=== PATIENT | female | born 2000 | race Caucasian/White ===

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

== ENCOUNTER 2020-07-28 19:19 | Emergency (ER) | payer OTHER, SELFPAY ==
[2020-07-28 19:20] VITALS: BP 151/89; PULSE 76; RESP 16; TEMP 36.7; O2SAT 100; BMI 48.2
--- NOTE | 2020-07-28 19:39 | ED.DCSUM_ITS ---
History of Present Illness Chief Complaint: GI Bleed Informant: Patient Narrative: 20-year-old female presents for evaluation of painless rectal bleeding. She tells me about 1 week ago she was constipated and spent a significant hard time sitting and straining. During this time she started to have bright red blood per the rectum and again no pain. She states that she went several days where she had normal bowel movements and no bleeding but the past couple days she has had diarrhea with blood. She denies any abdominal pain but she does note some intermittent cramping prior to having a bowel movement. No fevers. She states that she has had a couple endoscopies and colonoscopies when she was younger was told that she had IBS. 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 She never had any hemorrhoidal disease. No new medication changes. Patient does have a psychiatric history. Triage nurses noted that she has a vague daily thoughts of harming herself which is not a new finding. She states that she is not actively suicidal. Past Medical History - Allergies and Home Meds Allergies/Adverse Reactions: Allergies amoxicillin Allergy (Verified 07/28/20 19:23) Rash cefdinir [From Omnicef] Allergy (Verified 07/28/20 19:23) Rash Primary Care Physician: Thi Rowell DO [Primary Care Provider] - Past Medical History: - - Depression Surgical History: - - Colonoscopy/EGD Smoking Status: Former smoker Alcohol: None Drugs: None Review of Systems General: Denies: Chills, Fever, Sweats Eyes: Denies: Visual changes - bilaterally, Diplopia ENT: Denies: Rhinorrhea, Sore throat Cardiovascular: Denies: Chest pain, Palpitations Respiratory: Denies: Dyspnea, Cough, Dyspnea on exertion Gastrointestinal: Reports: Diarrhea, Constipation, - - Painless rectal bleeding. Denies: Abdominal pain, Nausea, Vomiting, Melena, Hematochezia Genitourinary: Denies: Dysuria, Hematuria, Frequency Musculoskeletal: Denies: Back pain, Extremity Pain Skin: Denies: Rash, Wounds Neurological: Denies: Headache, Weakness, Numbness Physical Exam Vital Signs/Narrative: Vital Signs Temp Pulse Resp BP Pulse Ox 07/28/20 19:20 98.1 F 76 16 151/89 H 100 Inital Vital Signs reviewed: Yes General: Well nourished, Well developed, Obese, No Acute Distress Head: Normocephalic, Atraumatic Eyes: Perrl, EOMI ENT: Moist mucous membranes, No rhinorrhea Neck: Supple, Nontender Cardiovascular: Regular rate, Regular rhythm, No murmurs Respiratory: No distress, CTA bilaterally, Chest nontender Abdomen: Soft, Nontender, Nondistended, Normal bowel sounds, - - Abdominal exam is benign. Rectal: - - No blood on the glove. There appears to be some palpable internal hemorrhoids. No external hemorrhoid noted or fissure. Back: Nontender, Normal Inspection Extremities: Nontender, No edema Skin: Normal color, No rash Neurological: Alert, Oriented x3, Cranial nerves II-XII grossly intact, Normal Strength, Normal Sensation Psychological: Normal affect, Normal Mood Diagnostic/Tx/Re-eval - Medical Decision Making Patient has normal vital signs. She appears well-hydrated. This appears to be internal hemorrhoid bleed. Will write for some Proctofoam HC. Should symptoms not resolve she may require surgical referral for definitive care. She does not have a current primary care doctor and I will refer her to the next no doc. She has seen [facility] in the past and would like to stay within the [facility] system. ED Disposition - Plan for ED Patient: Disposition: Home or Assisted Living Diagnosis: Internal hemorrhoid, bleeding Instructions: ED Hemorrhoids Prescriptions: Hydrocortisone/Pramoxine [Proctofoam-Hc Foam] 10 gm RC TID #1 canister Prescription Printed Referrals: Conner Willis MD [STAFF PHYSICIAN] - (call to arrange follow up) Additional Instructions: Avoid constipation or long periods of sitting and straining. You may consider stool softener or a bottle of mag citrate if you become constipated again.
[2020-07-28 20:01] VITALS: BP 151/89; PULSE 76; RESP 16
== END 2020-07-28 20:02 | disposition home or self-care (01) ==
LOC: ED 19:54
PROVIDERS: Emergency Provider Emergency Medicine
DX: K64.8 Other hemorrhoids (principal); R19.7 Diarrhea, unspecified; K59.00 Constipation, unspecified; E66.9 Obesity, unspecified; F32.9 Major depressive disorder, single episode, unspecified; Z79.899 Other long term (current) drug therapy; Z87.891 Personal history of nicotine dependence
CPT/HCPCS: 99282

== ENCOUNTER 2020-08-05 16:44 | Emergency (ER) | payer OTHER, SELFPAY ==
[2020-08-05 16:45] VITALS: BP 149/114; PULSE 88; RESP 16; TEMP 35.9; O2SAT 99; BMI 47.0
--- NOTE | 2020-08-05 16:59 | CT_ITS ---
STUDY: CT ABDOMEN AND PELVIS WITH CONTRAST REASON FOR EXAM: Female, 20 years old. Abd pain RADIATION DOSAGE (If Supplied By Facility): CTDIvol = ( 17.08 ) mGy, DLP = ( 1352.08 ) mGycm TECHNIQUE: Transaxial images were obtained from the dome of the diaphragm to the symphysis pubis without oral contrast. IV 100mL Isovue-370 was administered. Sagittal and coronal images were reconstructed. Individualized dose optimization techniques were used for this CT. COMPARISON: None. FINDINGS: The visualized lung bases are unremarkable. The visualized portions of the heart are within normal limits. Normal liver. Normal gallbladder and extrahepatic biliary system. Normal spleen. Normal pancreas. Normal bilateral adrenal glands. Normal right kidney. Normal left kidney. Normal visualized stomach. Normal small intestine. Normal colon. The appendix is visualized and appears normal. Normal abdominal aorta. Normal inferior vena cava. Normal retroperitoneum. Normal urinary bladder. Normal abdominal wall. Normal osseous structures. CT/Abdomen/Pelvis W IV Cont ONLY IMPRESSION: Normal enhanced CT of the abdomen and pelvis. Electronically Signed: Twin Florez DO at 18:56 EDT Tel [phone], Service support ,
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
[2020-08-05] MEDS: 0.9% Normal Saline 1,000 ML 125 ML IV (17:22)
[2020-08-05] MEDS: Ondansetron 4 MG/2 ML Vial IV (17:23)
[2020-08-05 17:41] LABS: Absolute Lymphocyte Count 1.62 X10^3/uL (0.83-4.51); Absolute Neutrophil Count 4.1 X10^3/uL (2.0-7.7); Basophil# 0.04 X10^3/uL; Basophil% 0.6 % (0-1); Eosinophil# 0.42 X10^3/uL; Eosinophils% 6.2 % (0-5); Hematocrit 40.3 % (37-47); Hemoglobin 13.4 g/dL (12.0-15.0); Lymphocyte # 1.62 X10^3/ul (4.0); Lymphocyte % 23.9 % (19-41); Mean Corp Hgb Conc 33.3 g/dL (32-36); Mean Corpuscular Hgb 30.6 pg (27.0-32.0); Mean Platelet Vol. 8.9 fl (6.2-12.0); Monocyte# 0.54 X10^3/uL; NRBC Flagged by Analyzer 0 % (0-5); Neutrophil # 4.14 X10^3/uL (2.7-7.7); Neutrophil % 61.2 % (47-70); Platelet Count 299 K/mm3 (150-450); RBC Distribution Width CV 11.6 % (11.6-14.6); RBC Distribution Width SD 39.4 fl (35.1-43.9); Red Blood Count 4.38 M/mm3 (4.2-5.4); White Blood Count 6.8 K/mm3 (4.4-11.0)
[2020-08-05 17:54] LABS: AST(SGOT) 21 U/L (15-37); Alanine Aminotransfer ALT/SGPT 23 U/L (13-56); Alkaline Phosphatase 61 U/L (45-117); Anion Gap 4 (5-15); BUN 10 mg/dL (7-18); Calcium,Total 9.1 mg/dL (8.5-10.1); Chloride 104 mmol/L (98-107); Creatinine, Serum 0.91 mg/dL (0.55-1.02); EST Glomerular Filtration Rate 83 mL/min (>60); Est Glom Filt Rate - Afr Amer 100 mL/min (>60); Globulin 3.9 g/dL (2.2-4.2); Glucose 82 mg/dL (74-106); Potassium 3.8 mmol/L (3.5-5.1); Protein, Total 7.9 g/dL (6.4-8.2); Sodium Level 138 mmol/L (136-145)
[2020-08-05 18:13] LABS: Internal QC Validated? YES +Cl - CLEAR BKGD; Pregnancy, Serum, hCG Quali. NEGATIVE Negative
[2020-08-05 19:25] VITALS: BP 136/70; PULSE 68; RESP 16
== END 2020-08-05 19:26 | disposition home or self-care (01) ==
LOC: ED 17:31
PROVIDERS: Emergency Provider Emergency Medicine
DX: R10.9 Unspecified abdominal pain (principal); R11.2 Nausea with vomiting, unspecified; K58.9 Irritable bowel syndrome, unspecified; Z87.891 Personal history of nicotine dependence
CPT/HCPCS: 74177; 80053; 84703; 85025; 96361; 96374; 99283; J7030; Q9967; J2405

== ENCOUNTER 2021-01-14 07:29 | Emergency (ER) | payer OTHER, SELFPAY ==
[2021-01-14 07:31] VITALS: BP 159/74; PULSE 87; RESP 16; TEMP 35.9; O2SAT 100; BMI 48.0
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
== END 2021-01-14 09:40 | disposition home or self-care (01) ==
PROVIDERS: Emergency Provider Emergency Medicine
DX: S46.912A Strain of unspecified muscle, fascia and tendon at shoulder and upper arm level, left arm, initial encounter (principal); V89.2XXA Person injured in unspecified motor-vehicle accident, traffic, initial encounter; Y93.9 Activity, unspecified; Y92.9 Unspecified place or not applicable; Z87.891 Personal history of nicotine dependence
CPT/HCPCS: 73030; 99282

== ENCOUNTER 2021-02-22 17:05 | Emergency (ER) | payer OTHER, SELFPAY ==
[2021-02-22 17:05] VITALS: BP 134/75; PULSE 90; RESP 16; TEMP 35.8; O2SAT 100; BMI 49.6
--- NOTE | 2021-02-22 17:41 | EX.ED.DYSGE1 ---
HPI History of Present Illness Chief Complaint: Nausea/Vomiting Informant: patient Narrative Narrative: Patient here with mother recurrent vomiting starting yesterday. Symptoms started 2 weeks ago with diarrhea at that time. States daily loose stools that would alternate being soft and loose. Nonbloody. No recent antibiotics. She was Covid tested a few days after and was negative. She had an infection in May she is vaccinated in October. Denies sick contacts. Tolerating fluids up till yesterday. Nonbloody emesis. Endoscopy at the age of 15 noting gastritis. She is not on any stomach medications currently. Denies urinary symptoms last menstrual period 3 weeks ago. Prior similar symptoms: Yes PFSH PFSH Medical History Anxiety Depression Non-smoker Home Medications fluoxetine 80 mg PO QHS 07/28/20 [History Last Taken Unknown] lurasidone 60 mg PO QHS 07/28/20 [History Last Taken Unknown] trazodone 75 mg PO QHS 07/28/20 [History Last Taken Unknown] aripiprazole 5 mg PO DAILY 02/22/21 [History Last Taken Unknown] omeprazole 40 mg PO DAILY #30 cap 02/22/21 [Rx Last Taken Unknown] ondansetron 4 mg PO Q6H PRN #10 tab 02/22/21 [Rx Last Taken Unknown] Allergy/AdvReac Type Severity Reaction Status Date / Time amoxicillin Allergy Rash Verified 02/22/21 17:09 [email or web address] [From Omnicef] Allergy Rash Verified 02/22/21 17:09 Surgical History (Updated 02/22/21 @ 18:11 by El Rojas) Hx of colonoscopy Social History Smoking Status: Former smoker ROS ROS ED Constitutional Constitutional ED: Denies chills, fever(s) or sweats Eyes Eyes: Denies change in vision ENT ENT ED: Denies dysphagia or sore throat Cardiovascular Cardiovascular: Denies chest pain, leg edema, palpitations or racing heartbeat Respiratory/Chest Respiratory/Chest: Denies cough, dyspnea or dyspnea on exertion Gastrointestinal Gastrointestinal: Reports abdominal pain, diarrhea, nausea and vomiting; Denies melena Genitourinary Genitourinary ED: Denies dysuria, hematuria or urinary frequency Musculoskeletal Musculoskeletal: Denies back pain, extremity pain or neck pain Integumentary Denies rash or wounds Neurologic Neurologic: Denies headache(s), paresthesias or weakness EXAM Physical Exam Const Vital Signs: 02/22/21 17:05 02/22/21 18:10 02/22/21 20:48 Temperature 96.5 F L Temperature Source Temporal Pulse Rate 90 71 65 Respiratory Rate 16 16 16 Blood Pressure 134/75 H 126/77 H 156/78 H Blood Pressure Mean 94 93 Pulse Ox 100 99 99 Oxygen Delivery Method Room Air Room Air Positive well nourished and well developed General Appearance ED: well developed and NAD HEENT Reports dry mucous membranes normocephalic and atraumatic Mouth ED: Yes dry mucous membranes Mouth: dry mucous membranes Eyes PERRL, EOMs intact bilaterally and conjunctivae normal General Eye ED: Yes normal appearance of both eyes Neck no lymphadenopathy and supple General: Negative for tenderness Chest Wall Chest: Negative for tenderness Resp normal respiratory effort and normal air movement Effort and Inspection: symmetric chest movement; Negative for respiratory distress Cardio regular rate, regular rhythm and no murmurs Peripheral Pulses: pulses 2+ throughout GI GI Narrative: Epigastric tenderness no guarding or rebound. Negative Adams's or McBurney's tenderness. Palpation: Negative for guarding or rebound tenderness present Back/Spine no CVA tenderness and no thoracic nor lumbar tenderness Extremity normal to inspection General Extremety ED: Negative for edema or tenderness General Extremity: Negative for edema Neuro oriented x3 and no sensory deficits noted Sensorium / Orientation: awake and alert Skin no rashes or lesions noted and no wounds MDM MDM MDM Narrative Medical decision making narrative: Patient nonsurgical abdomen, dry mucosal membranes. With her diarrhea has been persistent. Laboratory studies checked normal potassium. Abdominal labs are all normal. Urine noted leukocytes however no other findings she does not have any symptoms. hCG negative. Given Zofran Pepcid provement of symptoms reevaluation abdomen remains soft. She will be placed on omeprazole as needed Zofran. She will follow-up as an outpatient. She is tolerating oral fluids in the ED prior to discharge. All questions were answered. Patient is being discharged under pandemic conditions under declared global, national and state disaster activation, with limited medical resources. Patient and community understands this. Results discussed in layman's terms to the patient satisfaction. All questions answered in layman's terms. Patient understands importance of follow-up care as directed. Patient has been instructed to return to the ED immediately if new symptoms, problems, or questions occur. We mutually agree with the plan of disposition. The patient understand that they may call or return with any questions or concerns at any time. Prior to discharge she had emesis bout. She-additional Zofran with no vomiting or reported nausea given Reglan with improvement of symptoms. She had bowel sounds and movement her bowels, lower suspicion for any bowel obstructions. She continue oral fluids at home. All questions were answered. Lab Data Attestation: I reviewed the patient's lab results. Labs: Laboratory Results - last 24 hr 02/22/21 02/22/21 02/22/21 16:00 16:00 18:24 WBC 7.3 RBC 4.29 Hgb 13.1 Hct 39.3 MCV 91.6 MCH 30.5 MCHC 33.3 RDW Std Deviation 39.7 RDW Coeff of Lori 11.8 Plt Count 277 MPV 9.1 Immature Gran % (Auto) 0.300 Neut % (Auto) 60.0 Lymph % (Auto) 25.8 [place] % (Auto) 9.5 Eos % (Auto) 4.0 Baso % (Auto) 0.4 Absolute Neuts (auto) 4.4 Absolute Lymphs (auto) 1.88 Nucleated RBC % 0 Sodium 141 Potassium 3.8 Chloride 107 Carbon Dioxide 27.0 Anion Gap 7 BUN 12 Creatinine 0.88 Estim Creat Clear Calc 82.95 Est GFR (MDRD) Af Amer 104 Est GFR (MDRD) Non-Af 86 BUN/Creatinine Ratio 13.7 Glucose 109 H Calcium 9.0 Total Bilirubin 0.80 AST 13 L ALT 20 Alkaline Phosphatase 54 Total Protein 7.5 Albumin 3.7 Globulin 3.8 Albumin/Globulin Ratio 1.0 Lipase 75 Urine Color Yellow Urine Clarity Clear Urine pH 6.0 Ur Specific [place] 1.025 Urine Protein Negative Urine Glucose (UA) Normal Urine Ketones Negative Urine Occult Blood Negative Urine Nitrite Negative Urine Bilirubin Negative Urine Urobilinogen Normal Ur Leukocyte Esterase 25 H Urine RBC 0 SEEN Urine WBC 0 SEEN Ur Squamous Epith Cells 0-5 SEEN Urine Bacteria 0 SEEN Urine Mucus 0 SEEN Urine Test Negative Discharge Plan Triage Chief Complaint: Nausea/Vomiting ED Provider: Ryan Wang Dx/Rx/DC Orders Clinical Impression: Nausea vomiting and diarrhea, Gastritis, Dehydration Instructions: ED Dehydration (Adult), ED Vomiting and Diarrhea ... Prescriptions: New omeprazole 40 mg capsule,delayed release(DR/EC) 40 mg PO DAILY Qty: 30 RF: 0 ondansetron 4 mg tablet,disintegrating 4 mg PO Q6H PRN (Reason: nausea and vomiting) Qty: 10 RF: 0 No Action trazodone 50 MG tablet 75 mg PO QHS RF: 0 fluoxetine 20 MG capsule 80 mg PO QHS RF: 0 lurasidone 40 MG tablet 60 mg PO QHS RF: 0 aripiprazole 5 mg tablet 5 mg PO DAILY RF: 0 Primary Care Provider: Care Physician,No Primary Referrals: Vandana Franco [NON-STAFF] - 1 Week Care Physician,No Primary [Primary Care Provider] - Disposition Disposition: Home, Self Care Discharge Date/Time: 02/22/21 20:50
[2021-02-22 18:06] LABS: Absolute Lymphocyte Count 1.88 X10^3/uL (0.83-4.51); Absolute Neutrophil Count 4.4 X10^3/uL (2.0-7.7); Basophil# 0.03 X10^3/uL; Basophil% 0.4 % (0-1); Eosinophil# 0.29 X10^3/uL; Hematocrit 39.3 % (37-47); Hemoglobin 13.1 g/dL (12.0-15.0); Lymphocyte # 1.88 X10^3/ul (0.83-4.51); Lymphocyte % 25.8 % (19-41); Mean Corp Hgb Conc 33.3 g/dL (32-36); Mean Corpuscular Hgb 30.5 pg (27.0-32.0); Mean Corpuscular Volume 91.6 fL (81-99); Mean Platelet Vol. 9.1 fl (6.2-12.0); Monocyte# 0.69 X10^3/uL; Monocyte% 9.5 % (0-10); NRBC Flagged by Analyzer 0 % (0-5); Neutrophil # 4.39 X10^3/uL (2.7-7.7); Platelet Count 277 K/mm3 (150-450); RBC Distribution Width CV 11.8 % (11.6-14.6); RBC Distribution Width SD 39.7 fl (35.1-43.9); Red Blood Count 4.29 M/mm3 (4.2-5.4); White Blood Count 7.3 K/mm3 (4.4-11.0)
[2021-02-22] MEDS: 0.9% Normal Saline 1,000 ML 1000 ML IV (18:08)
[2021-02-22] MEDS: Ondansetron 4 MG/2 ML Vial IV ×2 (18:08→19:30)
[2021-02-22 18:10] VITALS: BP 126/77; PULSE 71; RESP 16; O2SAT 99
[2021-02-22 18:26] LABS: AST(SGOT) 13 U/L (15-37); Alanine Aminotransfer ALT/SGPT 20 U/L (13-56); Albumin, Serum 3.7 g/dL (3.2-5.0); Alkaline Phosphatase 54 U/L (45-117); Anion Gap 7 (5-15); BUN 12 mg/dL (7-18); BUN/Creat Ratio 13.7 RATIO (10-20); Chloride 107 mmol/L (98-107); Creatinine, Serum 0.88 mg/dL (0.55-1.02); EST Glomerular Filtration Rate 86 mL/min (>60); Est Glom Filt Rate - Afr Amer 104 mL/min (>60); Estimated Creatinine Clearance 82.95 ml/min; Globulin 3.8 g/dL (2.2-4.2); Glucose 109 mg/dL (74-106); Lipase 75 U/L (73-393); Potassium 3.8 mmol/L (3.5-5.1); Protein, Total 7.5 g/dL (6.4-8.2); Sodium Level 141 mmol/L (136-145)
[2021-02-22] MEDS: Famotidine 200 MG/20 ML MDV 20 MG in 0.9% Normal Saline (Pres. free 8 ML 300 MG IV (18:29)
[2021-02-22 18:30] LABS: Bacteria 0 SEEN /hpf (None Seen); Mucous, Urine 0 SEEN /hpf (<or=2+); Red Blood Cells-Urine 0 SEEN /hpf (0-5); White Blood Cells 0 SEEN /hpf (0-5)
[2021-02-22 18:34] LABS: Color, Urine Yellow (Yellow); Glucose, Dipstick Normal (Normal); Ketone-Dipstick Negative (Negative); Leukocyte Esterase-Dipstick 25 /ul (Negative); Nitrite-Dipstick Negative (Negative); Occult Blood-Urine Negative /ul (Negative); Protein-Dipstick Negative (Negative); Specific Gravity, Urine 1.025 (1.002-1.030); Urine Bilirubin Dipstick Negative (Negative); Urine Clarity Clear (Clear); Urine Urobilinogen Normal (Normal)
[2021-02-22 18:37] LABS: Internal QC Validated? YES +Cl - CLEAR BKGD; Pregnancy, Urine Negative Negative
[2021-02-22 18:40] LABS: Squamous Epithelial Cells - UA 0-5 SEEN /hpf (5-10)
[2021-02-22] MEDS: Metoclopramide 10 MG/2 ML Vial 5 MG IV (20:13)
[2021-02-22 20:48] VITALS: BP 156/78; PULSE 65; RESP 16; O2SAT 99
== END 2021-02-22 20:50 | disposition home or self-care (01) ==
PROVIDERS: Emergency Provider Emergency Medicine
DX: K29.70 Gastritis, unspecified, without bleeding (principal); E86.0 Dehydration; F32.9 Major depressive disorder, single episode, unspecified; F41.9 Anxiety disorder, unspecified; Z79.899 Other long term (current) drug therapy; Z87.891 Personal history of nicotine dependence
CPT/HCPCS: 80053; 81001; 81025; 83690; 85025; 96361; 96374; 96375; 96376; 99283; A4216; J2405; J3490